=== PATIENT | female | born 1960 | race Caucasian/White ===

== ENCOUNTER 2023-04-10 04:56 | Day surgery (SDC) | payer OTHER ==
[~2023-04-10] VITALS: Ht 157.5 cm; Wt 45.9 kg
[~2023-04-10 04:56] MED LIST: CYCLOPENTOLATE HCL 1% 2 ML OPHTHALMIC SOLUTION ONE; KETOROLAC TROMETHAMINE 0.5% 5 ML OPHTHALMIC SOLUTION ONE; MOXIFLOXACIN HCL 0.5% 3 ML OPHTHALMIC SOLUTION ONE; PHENYLEPHRINE HCL 2.5% 2 ML OPHTHALMIC SOLUTION ONE; RINGERS SOLUTION,LACTATED 500 ML IV ONE; TETRACAINE HCL/PF 0.5% 4 ML OPHTHALMIC SOLUTION ONE; TROPICAMIDE 1% 2 ML OPHTHALMIC SOLUTION ONE
[2023-04-10] MEDS ORDERED: RINGERS SOLUTION,LACTATED 500 ML IV ONE ×2 (05:00→08:10)
[2023-04-10] MEDS ORDERED: ATOR10TA69 PO (05:14)
[2023-04-10] MEDS ORDERED: BALANCED SALT 15 ML OPHTHALMIC IRRIG.SOLN ONE (05:53)
[2023-04-10] MEDS ORDERED: TETRACAINE HCL/PF 0.5% 4 ML OPHTHALMIC SOLUTION ONE ×2 (05:53→07:27)
[2023-04-10] MEDS ORDERED: LIDOCAINE/PF 1% 2 ML VIAL ONE (05:53)
[2023-04-10] MEDS ORDERED: POVIDONE-IODINE 5% 30 ML OPHTHALMIC SOLUTION ONE (05:54)
[2023-04-10] MEDS ORDERED: ACETAMINOPHEN 325 MG TABLET PO PRN (07:00)
[2023-04-10] MEDS ORDERED: PHENYLEPHRINE HCL 2.5% 2 ML OPHTHALMIC SOLUTION OD ONE (07:00)
[2023-04-10] MEDS ORDERED: TETRACAINE HCL/PF 0.5% 4 ML OPHTHALMIC SOLUTION OD ONE (07:00)
[2023-04-10] MEDS ORDERED: MitoMYcin 0.2 MG/VIAL KIT FOR OPHTHALMIC USE OD ONE (07:00)
[2023-04-10] MEDS ORDERED: MOXIFLOXACIN HCL 0.5% 3 ML OPHTHALMIC SOLUTION OD ONE (07:00)
[2023-04-10] MEDS ORDERED: MOXIFLOXACIN HCL 0.5% 3 ML OPHTHALMIC SOLUTION ONE (07:27)
[2023-04-10] MEDS ORDERED: PHENYLEPHRINE HCL 2.5% 2 ML OPHTHALMIC SOLUTION ONE (07:28)
[2023-04-10] MEDS ORDERED: MIDAZOLAM HCL 2 MG/2 ML VIAL IVP ONE (12:00)
[2023-04-10] MEDS ORDERED: FentaNYL CITRATE PF 100 MCG/2 ML VIAL IV ONE (12:00)
== END 2023-04-10 09:55 | disposition home or self-care (01) ==
LOC: SURGERY 04:56
PROVIDERS: ATTEND Ophthalmology
DX: H11.001 Unspecified pterygium of right eye (principal); J45.909 Unspecified asthma, uncomplicated; Z79.899 Other long term (current) drug therapy; Z98.890 Other specified postprocedural states
CPT/HCPCS: 65426; 88304; 93005; J3010; J3490; J2250; Q9967; J7120